=== PATIENT | female | born 1965 | race Native Hawaiian/Other Pacific Islander ===

== ENCOUNTER 2017-07-30 15:51 | Outpatient (CLI) | payer BC | END 2017-07-30 21:33 | disposition home or self-care (01) | LOC: RESP 15:51 | DX: Z01.818 Encounter for other preprocedural examination (principal) | CPT/HCPCS: 93005 ==

== ENCOUNTER 2019-02-09 16:55 | Outpatient (CLI) | payer BC ==
[2019-02-09 17:16] LABS: PLATELET COUNT 191 K/uL (152-353)
[2019-02-09 17:36] LABS: POTASSIUM 3.9 mmol/L (3.6-5.2); SODIUM 139 mmol/L (136-145)
== END 2019-02-09 22:21 | disposition home or self-care (01) ==
LOC: LABW 16:55
PROVIDERS: Nurse Practitioner Family
DX: R07.9 Chest pain, unspecified (principal)
CPT/HCPCS: 80053; 82550; 82553; 83735; 84484; 85027